=== PATIENT | male | born 1975 | race Caucasian/White ===

== ENCOUNTER 2018-05-07 07:53 | Emergency (ER) | payer OTHER ==
[~2018-05-07] VITALS: Ht 170.2 cm; Wt 72.6 kg
[2018-05-07 08:14] VITALS: BP 152/98
[2018-05-07 08:17] VITALS: BP 152/98
--- NOTE | 2018-05-07 08:19 | Emergency Room Report ---
History of Present Illness General Chief Complaint: Hypertension Source: Patient Present Illness HPI Patient is a 42-year-old male presented for high blood pressure. Patient noticed recent elevations in his blood pressure. Patient had recent eye exam where he had a blood pressure checked and was noted to have blood pressure systolic in the 170s. The patient denies any chest pain shortness of breath visual changes or severe headache. He denies any leg swelling or complaints this time. The patient states he has primary care physician. Allergies: Coded Allergies: No Known Allergies (Unverified , 05/07/18) Patient History Past Medical History: see triage record Reviewed Nursing Documentation: PMH: Agreed; PSxH: Agreed Nursing Documentation-PMH Past Medical History: No Stated History Review of Systems All Other Systems: negative except mentioned in HPI Physical Exam Vital Signs Date Time Temp Pulse Resp B/P (MAP) Pulse Ox O2 Delivery O2 Flow Rate FiO2 05/07/18 07:56 98.2 87 18 152/98 97 Room Air 98.2 General Appearance: well appearing, no apparent distress, alert, GCS 15 Head: normocephalic, atraumatic ENT: hearing grossly normal, normal voice Neck: full range of motion, supple Respiratory: lungs clear, no respiratory distress, speaking full sentences Cardiovascular #1: normal peripheral pulses, regular rate, rhythm, no edema Gastrointestinal: normal inspection, normal bowel sounds, non tender Musculoskeletal: normal inspection, no calf tenderness Neurologic: normal inspection, alert, oriented x3, normal gait Psychiatric: normal inspection, judgement/insight normal, mood/affect normal Skin: no rash Medical Decision Making Diagnostic Impression: Primary Impression: Hypertension ER Course Patient presented for asymptomatic hypertension. Differential diagnosis included was not limited to the essential hypertension, hypertensive crisis, among others. Patient has a benign exam and does not appear to require any further imaging or laboratory testing at this time. The patient was noted to have the mildly elevated blood pressure which does not require emergency department treatment at this time. Patient stated that he had denied any current symptoms. The patient was advised to follow-up with his primary care physician for reevaluation. Patient was advised smoking cessation. Patient was advised to return if he had any developed any concerning signs or symptoms. The patient is advised dietary modification to include increasing for initial intake and lower salt diet. Last Vital Signs Date Time Temp Pulse Resp B/P (MAP) Pulse Ox O2 Delivery O2 Flow Rate FiO2 05/07/18 07:56 98.2 87 18 152/98 97 Room Air 98.2 Status: improved Disposition: HOME, SELF-CARE Condition: Stable Patient Instructions: Hypertension Additional Instructions: Follow up with your primary care physician for further management and reevaluation of your blood pressure. Return if you have any concerns. Geraldo Perdomo MD May 07, 2018 08:19
== END 2018-05-07 08:30 | disposition home or self-care (01) ==
LOC: EMR 08:15
DX: I10 Essential (primary) hypertension (principal)
CPT/HCPCS: 99282